=== PATIENT | female | born 1985 | race Asian ===

== ENCOUNTER 2022-05-16 18:06 | Outpatient (CLI) | payer MEDICAID, SELFPAY | END 2022-05-16 18:07 | disposition home or self-care (01) | LOC: LKVREF 05-29 11:28 | PROVIDERS: PCP Family Medicine; Visit Provider Nurse Practitioner Family | DX: R35.0 Frequency of micturition (principal); N39.0 Urinary tract infection, site not specified | CPT/HCPCS: 87086; 87186 ==